=== PATIENT | male | born 1995 | race Caucasian/White ===

== ENCOUNTER → 2019-08-06 | Outpatient (CLI) | payer OTHER ==
--- NOTE | 2019-08-06 16:49 | RAD ---
EXAM: PA, oblique and lateral views left ring finger DATE: 08/06/2019 12:00 AM INDICATION: Left ring finger fracture, injury COMPARISON: No Prior FINDINGS/ IMPRESSION: 1. Comminuted fracture of the distal phalanx of the tuft of the left ring finger with moderate overlying soft tissue swelling. 2. Focal eccentric thickening fifth metacarpal shaft, suspected bone island. Electronically signed by: Oscar Farias MD (08/06/2019 4:46 PM) [facility]
== END | disposition home or self-care (01) ==
LOC: RAD 09:41
PROVIDERS: ATTEND Physician Assistant Medical
DX: S62.635D Displaced fracture of distal phalanx of left ring finger, subsequent encounter for fracture with routine healing (principal); X58.XXXD Exposure to other specified factors, subsequent encounter
CPT/HCPCS: 73130

== ENCOUNTER → 2020-07-07 | Outpatient (CLI) | payer OTHER ==
--- NOTE | 2020-07-07 13:51 | RAD ---
EXAMINATION: CHEST PA LATERAL CLINICAL HISTORY: Reason: CHEST PAIN, COVID+ 07/05/20 / Spl. Instructions: / History: EXAM DATE/TIME: 07/07/2020 12:52 PM COMPARISON: None FINDINGS: Lines, tubes, and devices: None. Cardiomediastinal silhouette: Within normal limits. Lungs and pleura: Question minimal patchy opacities in the bilateral lower lung zones which may represent subsegmental atelectasis, subtle airspace disease, more superimposed normal bronchovascular structures. No pleural effusion. Pulmonary vasculature unremarkable. Bones and soft tissues: No acute osseous abnormality. IMPRESSION: Questionable minimal patchy opacities in bilateral lower lung zones as described, otherwise no evidence of acute cardiopulmonary abnormality. Electronically signed by: Pranay Cevallos DO (07/07/2020 1:49 PM) [id number]
== END | disposition home or self-care (01) ==
LOC: RAD 12:12 → ER 12:26 → EDSTATUS 12:26 → RAD 12:49
PROVIDERS: ATTEND Physician Assistant Medical
DX: R07.9 Chest pain, unspecified (principal)
CPT/HCPCS: 71046

== ENCOUNTER → 2020-07-18 | Outpatient (CLI) | payer OTHER ==
--- NOTE | 2020-07-18 15:38 | RAD ---
AP and Lateral Views of the Chest 07/18/2020 12:00 AM Indication: Reason: SHORT OF BREATH, COVID + / Spl. Instructions: / History: Comparison: Chest radiograph July 07, 2020 Findings: There is no focal consolidation or infiltrate identified. The cardiomediastinal silhouette is within normal limits. There is no evidence of pneumothorax or pleural effusion. No acute osseous abnormalities are identified. Impression: No evidence of acute cardiopulmonary process. Electronically signed by: Yong Rios MD (07/18/2020 3:34 PM) [id number]
== END | disposition home or self-care (01) ==
LOC: RAD 14:21
PROVIDERS: ATTEND Physician Assistant Medical
DX: R06.02 Shortness of breath (principal)
CPT/HCPCS: 71046